=== PATIENT | female | born 2005 | race Caucasian/White ===

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

== ENCOUNTER → 2023-04-18 | Outpatient (CLI) | payer OTHER ==
[2023-04-19 14:05] LABS: Candida species (DNA Probe) Positive (NEGATIVE); G. vaginalis (DNA Probe) Positive (NEGATIVE); T. vaginalis (DNA Probe) Negative (NEGATIVE)
== END ==
LOC: LAB SHORT 15:10 → LAB 15:10
PROVIDERS: Physician Assistant
DX: N89.8 Other specified noninflammatory disorders of vagina (principal)
CPT/HCPCS: 87480; 87510; 87660

== ENCOUNTER → 2024-06-29 | Outpatient (CLI) | payer OTHER | END | disposition home or self-care (01) | LOC: LAB SHORT 15:57 → LAB 15:57 | DX: N39.0 Urinary tract infection, site not specified (principal) | CPT/HCPCS: 87077; 87086; 87186 ==

== ENCOUNTER → 2024-07-12 | Outpatient (CLI) | payer OTHER | LOC: LAB 09:40 → LAB SHORT 09:40 | PROVIDERS: Physician Assistant | DX: Z01.419 Encounter for gynecological examination (general) (routine) without abnormal findings (principal) | CPT/HCPCS: G0123 ==